=== PATIENT | female | born 1965 | race Caucasian/White ===

== ENCOUNTER → 2016-12-14 | Outpatient (REF) | payer BC ==
[2016-12-14 11:47] LABS: MEAN CORPUSCULAR HEMOGLOBIN 28.3 pg (27.0-33.0); MEAN CORPUSCULAR HGB CONC 32.4 g/dl (32.0-36.5); MEAN CORPUSCULAR VOLUME 87.3 fl (80.0-96.0); RED CELL DISTRIBUTION WIDTH 13.6 % (11.5-14.5); WHITE BLOOD COUNT 6.4 K/mm3 (4.0-10.0)
[2016-12-14 12:55] LABS: ALBUMIN 3.7 GM/DL (3.2-5.2); ALBUMIN/GLOBULIN RATIO 1.03 (1.00-1.93); ALKALINE PHOSPHATASE 90 U/L (45-117); ALT/SGPT 23 U/L (12-78); ANION GAP 9 MEQ/L (8-16); AST/SGOT 17 U/L (15-37); BILIRUBIN,TOTAL 0.4 MG/DL (0.2-1.0); BLOOD UREA NITROGEN 17 MG/DL (7-18); CALCIUM LEVEL 9.8 MG/DL (8.5-10.1); CARBON DIOXIDE LEVEL 27 MEQ/L (21-32); CHLORIDE LEVEL 106 MEQ/L (98-107); CHOLESTEROL LEVEL 198 MG/DL (<200); CREATININE FOR GFR 0.89 MG/DL (0.55-1.02); GLOMERULAR FILTRATION RATE > 60.0 (>51); GLUCOSE, FASTING 69 MG/DL (70-105); POTASSIUM SERUM 4.5 MEQ/L (3.5-5.1); SODIUM LEVEL 142 MEQ/L (136-145); TOTAL PROTEIN 7.3 GM/DL (6.4-8.2); TRIGLYCERIDES LEVEL 57 MG/DL (<150)
== END ==
LOC: M SFHCPLAZ 09:38
PROVIDERS: ATTEND Internal Medicine
DX: Z00.00 Encounter for general adult medical examination without abnormal findings (principal); Z86.19 Personal history of other infectious and parasitic diseases; Z90.5 Acquired absence of kidney; R94.6 Abnormal results of thyroid function studies

== ENCOUNTER 2017-01-20 12:00 | Emergency (ER) | payer BC ==
[~2017-01-20] VITALS: Ht 165.1 cm; Wt 90.3 kg
[2017-01-20] MEDS ORDERED: LEVO50TA5 PO (12:11)
--- NOTE | 2017-01-20 12:54 | REP ---
Head CT without contrast: History: Headache. Comparison study: No comparison study. CT findings: Bone window settings demonstrate an intact bony calvarium. There is no evidence of skull fracture or incidental bony calvarial lesion. The visualized paranasal sinuses appear clear. No intraorbital abnormality is seen. On soft tissue window setting images; the lateral, third, and fourth ventricles are normal in size and position. Raza-white differentiation pattern is normal above and below the tentorium. There are is no evidence of intracranial hemorrhage. No mass, edema, infarction, or midline shift is seen. No extra-axial fluid collection is appreciated. Impression: Negative noncontrast head CT. Signed by Brijesh Oviedo MD 01/20/2017 12:44 P
[2017-01-20 13:18] VITALS: BP 132/78
== END 2017-01-20 13:23 | disposition home or self-care (01) ==
LOC: M ED 12:59
DX: H21.561 Pupillary abnormality, right eye (principal); H57.02 Anisocoria; E07.9 Disorder of thyroid, unspecified; Z90.5 Acquired absence of kidney; Z79.899 Other long term (current) drug therapy

== ENCOUNTER → 2017-06-03 | Outpatient (REF) | payer BC ==
[~2017-06-03] MED LIST: LEVO50TA5 PO
== END ==
LOC: M SFHCWAGY 08:17
PROVIDERS: ATTEND Nurse Practitioner Women's Health
DX: Z12.4 Encounter for screening for malignant neoplasm of cervix (principal)

== ENCOUNTER → 2017-06-03 | Outpatient (CLI) | payer BC ==
--- NOTE | 2017-06-03 08:55 | REPMRS ---
Patient History The patient states she had a clinical breast exam in 05/29 No known family history of cancer. Benign stereotatic breast biopsy of both breasts, October 16, 2007. Digital Woman Screen Mammo: June 03, 2017 - Exam #: [id number] Bilateral CC and MLO view(s) were taken. Technologist: Adamaris Ellington, Technologist Prior study comparison: June 03, 2016, digital woman screen mammo performed at [facility]. December 09, 2014, digital woman screen mammo performed at [facility]. October 19, 2013, digital woman screen mammo performed at [facility]. FINDINGS: There are scattered fibroglandular densities. There is a needle biopsy marker clip in the right breast. There has been no change in the appearance of the mammogram from the prior studies. There is a mild amount of scattered fibroglandular density which is fairly symmetric. There is no interval development of dominant mass, architectural distortion, or clustered microcalcification suggestive of malignancy. ASSESSMENT: BI-RADS/ACR category 2 mammogram. Benign finding(s). Recommendation Routine screening mammogram in 1 year (for women over age 40). This mammogram was interpreted with the aid of an FDA-approved computer-aided dectection system. Electronically Signed By: Brandon Oviedo MD 06/03/17 0830
== END ==
LOC: M WHC 08:01
PROVIDERS: ATTEND Nurse Practitioner Women's Health
DX: Z12.31 Encounter for screening mammogram for malignant neoplasm of breast (principal)

== ENCOUNTER → 2018-04-13 | Outpatient (CLI) | payer BC ==
[2018-04-13 19:51] LABS: HEMATOCRIT 36.8 % (36.0-47.0); HEMOGLOBIN 12.2 g/dl (12.0-15.5); MEAN CORPUSCULAR HEMOGLOBIN 28.5 pg (27.0-33.0); MEAN CORPUSCULAR HGB CONC 33.2 g/dl (32.0-36.5); PLATELET COUNT, AUTOMATED 404 10^3/uL (150-450); RED BLOOD COUNT 4.28 10^6/uL (4.00-5.40); WHITE BLOOD COUNT 6.6 10^3/uL (4.0-10.0)
[2018-04-13 20:49] LABS: ALBUMIN 3.7 GM/DL (3.2-5.2); ALBUMIN/GLOBULIN RATIO 1.06 (1.00-1.93); ALKALINE PHOSPHATASE 97 U/L (45-117); ALT/SGPT 36 U/L (12-78); ANION GAP 8 MEQ/L (8-16); AST/SGOT 25 U/L (7-37); BILIRUBIN,TOTAL 0.4 MG/DL (0.2-1.0); BLOOD UREA NITROGEN 30 MG/DL (7-18); CALCIUM LEVEL 9.3 MG/DL (8.5-10.1); CARBON DIOXIDE LEVEL 26 MEQ/L (21-32); CHLORIDE LEVEL 106 MEQ/L (98-107); CHOLESTEROL LEVEL 210 MG/DL (<200); CHOLESTEROL RISK RATIO 2.625 (<5); CREATININE FOR GFR 0.96 MG/DL (0.55-1.30); GLOMERULAR FILTRATION RATE > 60.0 (>51); GLUCOSE, FASTING 80 MG/DL (70-100); HDL CHOLESTEROL 80 MG/DL (>40); LDL CHOLESTEROL 117.4 MG/DL (<100); NON-HDL-C 130 MG/DL; SODIUM LEVEL 140 MEQ/L (136-145); TOTAL PROTEIN 7.2 GM/DL (6.4-8.2); TRIGLYCERIDES LEVEL 63 MG/DL (<150)
== END ==
LOC: M WUC 17:59
DX: Z86.19 Personal history of other infectious and parasitic diseases (principal); Z90.5 Acquired absence of kidney; E03.9 Hypothyroidism, unspecified
CPT/HCPCS: 84443

== ENCOUNTER → 2019-07-04 | Outpatient (REF) | payer BC ==
[2019-07-04 10:57] LABS: HEMATOCRIT 41.6 % (36.0-47.0); HEMOGLOBIN 13.4 g/dl (12.0-15.5); MEAN CORPUSCULAR HEMOGLOBIN 28.9 pg (27.0-33.0); MEAN CORPUSCULAR HGB CONC 32.2 g/dl (32.0-36.5); MEAN CORPUSCULAR VOLUME 89.7 fl (80.0-96.0); PLATELET COUNT, AUTOMATED 427 10^3/uL (150-450); RED BLOOD COUNT 4.64 10^6/uL (4.00-5.40); WHITE BLOOD COUNT 6.2 10^3/uL (4.0-10.0)
[2019-07-04 11:33] LABS: ALBUMIN 3.9 GM/DL (3.2-5.2); BILIRUBIN,TOTAL 0.6 MG/DL (0.2-1.0); CREATININE FOR GFR 1.11 MG/DL (0.55-1.30); GLOMERULAR FILTRATION RATE 54.1 (>51); POTASSIUM SERUM 4.4 MEQ/L (3.5-5.1); THYROID STIMULATING HORMONE 3.14 uIU/ML (0.358-3.740); TOTAL PROTEIN 7.9 GM/DL (6.4-8.2)
== END ==
LOC: M SFHCPLAZ 09:39
PROVIDERS: ATTEND Nurse Practitioner Adult Health
DX: R19.7 Diarrhea, unspecified (principal); E03.9 Hypothyroidism, unspecified

== ENCOUNTER → 2019-07-05 | Outpatient (REF) | payer BC | LOC: M SFHCPLAZ 11:14 | PROVIDERS: ATTEND Nurse Practitioner Adult Health | DX: R19.7 Diarrhea, unspecified (principal) ==

== ENCOUNTER → 2019-10-04 | Outpatient (CLI) | payer BC ==
--- NOTE | 2019-10-04 09:48 | REP ---
BILATERAL SCREENING DIGITAL MAMMOGRAM WITH 3D TOMOSYNTHESIS: There are no palpable abnormalities or other breast complaints. The the patient states she had a clinical breast examination the September,. The the patient states she performs self-breast examinations 12 times per year. The Tyrer-Cuzick Score is: 10.2% . Comparison is the 10/19/2013. There are scattered areas of fibroglandular density. There is no dominant mass, micro calcific cluster or architectural distortion that would indicate malignancy. There is a biopsy marking clip in each breast. The the patient had bilateral stereotactic breast biopsies in 2007. The biopsies were benign. There are no additional findings on 3D tomosynthesiss. There is no change from the prior study. Impression: BIRADS/ACR category 1 mammogram. Negative. Recommendation: Routine annual screening mammography. This mammogram was interpreted with the aid of a FDA approved computer-aided detection system. A. Negative mammogram reports should not delay biopsy if a dominant or clinically suspicious mass is present. B. Not all breast cancers are identified by mammography or tomosynthesis. C. Adenosis and dense breasts may obscure an underlying neoplasm. Patient letter M1. Electronically Signed by Rosendo Edwards MD 10/04/2019 09:40 A
== END ==
LOC: M WHC 08:04
PROVIDERS: ATTEND Nurse Practitioner Women's Health
DX: Z12.31 Encounter for screening mammogram for malignant neoplasm of breast (principal)

== ENCOUNTER → 2019-10-04 | Outpatient (REF) | payer BC | LOC: M SFHCWAGY 10:51 | PROVIDERS: ATTEND Nurse Practitioner Women's Health | DX: Z12.4 Encounter for screening for malignant neoplasm of cervix (principal) ==

== ENCOUNTER → 2020-08-18 | Outpatient (CLI) | payer BC ==
[2020-08-18 15:59] LABS: FREE T4 1.26 NG/DL (0.76-1.46)
[2020-08-18 16:00] LABS: PTH INTACT 32.8 PG/ML (18.5-88.0)
[2020-08-18 17:11] LABS: BLOOD UREA NITROGEN 15 MG/DL (7-18); CREATININE FOR GFR 0.96 MG/DL (0.55-1.30); GLOMERULAR FILTRATION RATE > 60.0 (>51)
== END ==
LOC: M LAB 14:32
PROVIDERS: ATTEND Otolaryngology
DX: T78.3XXA Angioneurotic edema, initial encounter (principal)

== ENCOUNTER → 2020-08-18 | Outpatient (CLI) | payer BC | LOC: M LAB 16:14 | PROVIDERS: ATTEND Otolaryngology | DX: T78.3XXA Angioneurotic edema, initial encounter (principal) ==

== ENCOUNTER → 2020-08-22 | Outpatient (CLI) | payer BC ==
[~2020-08-22] MED LIST changes: +PROHANCE 279.3MG/ML 15ML VIAL As Ordered ONE; +PROHANCE 279.3MG/ML 5ML VIAL As Ordered ONE; +diphenhydrAMINE 25MG CAP PO ONE
--- NOTE | 2020-08-22 14:15 | REPVR ---
PROCEDURE INFORMATION: Exam: MR Neck Without and With Contrast Exam date and time: 08/22/2020 12:41 PM Age: 55 years old Clinical indication: Mass, lump, or swelling; Patient HX: PT states swelling of the tongue; Additional info: Angioneurotic edema TECHNIQUE: Imaging protocol: MR images of the neck without and with intravenous contrast. Contrast material: PROHANCE; Contrast volume: 20 ml; Contrast route: INTRAVENOUS (IV); COMPARISON: No relevant prior studies available. FINDINGS: Oral Cavity: The tongue does not appear enlarged. The meena pharyngeal airway remains patent. Nasopharynx: Unremarkable. Oropharynx: Unremarkable. Hypopharynx: Unremarkable. Larynx: Unremarkable. Submandibular/Parotid glands: Unremarkable. Retropharyngeal space: Unremarkable. Vasculature: Unremarkable. Lymph nodes: There are small, scattered cervical lymph nodes. Need to focal No worrisome lymphadenopathy. Soft tissues: Bones/joints: Unremarkable. IMPRESSION: No acute soft tissue abnormality. Electronically signed by: Susana Winters On 08/22/2020 14:15:13 PM
== END ==
LOC: M RAD 11:23
PROVIDERS: ATTEND Otolaryngology
DX: T78.3XXA Angioneurotic edema, initial encounter (principal)
CPT/HCPCS: 70543; A9576

== ENCOUNTER → 2020-09-02 | Outpatient (CLI) | payer BC ==
[~2020-09-02] MED LIST changes: -PROHANCE 279.3MG/ML 15ML VIAL As Ordered ONE; -PROHANCE 279.3MG/ML 5ML VIAL As Ordered ONE; -diphenhydrAMINE 25MG CAP PO ONE
[2020-09-02 12:11] LABS: BASO % 0.2 % (0.0-1.0); EOS # 0.1 10^3/uL (0.0-0.5); HEMATOCRIT 41.2 % (36.0-47.0); HEMOGLOBIN 12.8 g/dl (12.0-15.5); LYMPH # 1.5 10^3/uL (1.5-5.0); LYMPH % 30.6 % (24.0-44.0); MEAN CORPUSCULAR HEMOGLOBIN 27.1 pg (27.0-33.0); MEAN CORPUSCULAR HGB CONC 31.1 g/dl (32.0-36.5); MEAN CORPUSCULAR VOLUME 87.3 fl (80.0-96.0); MONO # 0.4 10^3/uL (0.0-0.8); MONO % 7.1 % (0.0-5.0); NEUTROPHILS % 59.5 % (36.0-66.0); PLATELET COUNT, AUTOMATED 409 10^3/uL (150-450); RED BLOOD COUNT 4.72 10^6/uL (4.00-5.40)
[2020-09-02 12:43] LABS: ERYTHROCYTE SEDIMENTATION RATE 25 mm/hr (0-30)
[2020-09-02 12:51] LABS: ALBUMIN 3.6 GM/DL (3.2-5.2); ALT/SGPT 30 U/L (12-78); BILIRUBIN,TOTAL 0.3 MG/DL (0.2-1.0); BLOOD UREA NITROGEN 9 MG/DL (7-18); CALCIUM LEVEL 9.5 MG/DL (8.5-10.1); CARBON DIOXIDE LEVEL 29 MEQ/L (21-32); CHLORIDE LEVEL 106 MEQ/L (98-107); CREATININE FOR GFR 0.97 MG/DL (0.55-1.30); FERRITIN 97 NG/ML (8-252); FOLATE 16.9 NG/ML; GLOMERULAR FILTRATION RATE > 60.0 (>51); GLUCOSE, FASTING 88 MG/DL (70-100); POTASSIUM SERUM 4.9 MEQ/L (3.5-5.1); RHEUMATOID FACTOR QUANT < 10.0 IU/ML (<15.0); SODIUM LEVEL 140 MEQ/L (136-145); THYROGLOBULIN ANTIBODY 91.9 U/ML (<60.0); TOTAL PROTEIN 7.1 GM/DL (6.4-8.2); VITAMIN B12 LEVEL 660 PG/ML
[2020-09-06 16:07] LABS: ANTINUCLEAR ANTIBODIES DIRECT Negative (Negative); SJOGREN'S ANTI SS-A <0.2 AI (0.0-0.9); SJOGREN'S ANTI SS-B <0.2 AI (0.0-0.9); VITAMIN B1 LEVEL WHOLE BLOOD 75.6 nmol/L (66.5-200.0); VITAMIN B6,PYRIDOXAL PHOSPHATE 38.4 ug/L (2.0-32.8)
== END ==
LOC: M WUC 09:35
PROVIDERS: ATTEND Allergy & Immunology Allergy
DX: K14.0 Glossitis (principal)

== ENCOUNTER → 2020-10-06 | Outpatient (CLI) | payer BC ==
--- NOTE | 2020-10-06 09:49 | REPMRS ---
Patient History The patient states she had a clinical breast exam in October 2019. No known family history of cancer. Benign stereotatic breast biopsy of both breasts, October 16, 2007. No Hormone Replacement Therapy Digital Woman Screen Mammo: October 06, 2020 - Exam #: [id number] Bilateral CC and MLO view(s) were taken. Technologist: RT Sarah Prior study comparison: October 04, 2019, bilateral digital woman screen mammo performed at [facility]. June 03, 2017, digital woman screen mammo performed at [facility]. June 03, 2016, digital woman screen mammo performed at [facility]. FINDINGS: The breast tissue is almost entirely fat. The Volpara volumetric breast density category is: A. There is a needle biopsy marker clip in the right breast. There has been no change in the appearance of the mammogram from the prior studies. There is no interval development of dominant mass, architectural distortion, or grouped microcalcification typical of malignancy. 3-D tomosynthesis shows no additional findings. Assessment: BI-RADS/ACR category 2 mammogram. Benign Findings. Recommendation Routine screening mammogram of both breasts in 1 year (for women over age 40). This patient's [facility] Lifetime Breast Cancer RIsk is estimated at 9.9 %. This mammogram was interpreted with the aid of an FDA-approved computer-aided dectection system. Electronically Signed By: Brandon Oviedo MD 10/06/20 0921
== END ==
LOC: M WHC 08:00
PROVIDERS: ATTEND Nurse Practitioner Women's Health
DX: Z12.31 Encounter for screening mammogram for malignant neoplasm of breast (principal); Z86.018 Personal history of other benign neoplasm

== ENCOUNTER → 2020-10-21 | Outpatient (CLI) | payer BC | LOC: M WUC 08:09 | PROVIDERS: ATTEND Otolaryngology | DX: E03.1 Congenital hypothyroidism without goiter (principal) ==

== ENCOUNTER → 2021-05-28 | Outpatient (REF) | payer BC | LOC: M LAB REF 11:28 | PROVIDERS: ATTEND Internal Medicine | DX: R19.7 Diarrhea, unspecified (principal) ==

== ENCOUNTER → 2021-07-14 | Outpatient (POV) | payer BC ==
[~2021-07-14] VITALS: Ht 162.6 cm; Wt 100.0 kg
[2021-07-14 11:30] VITALS: BP 132/86
--- NOTE | 2021-07-16 10:05 | IRCOV ---
[facility] IR Consult Office Visit IR Consult Office Visit DATE: Jul 14, 2021 REASON FOR CONSULTATION/CHIEF COMPLAINT: Venogram. HISTORY OF PRESENT ILLNESS: 56-year-old female with history of crush injury to the left medial thigh in May 2021. She has a large wound on the left medial thigh with pressure necrosis and is undergoing care with wound care. She reports significant swelling of the left thigh and she is referred by wound care for venogram, to assess for any underlying saphenous vein reflux and/or deep vein thrombosis, as contributing factors to the edema. Due to the location and extent of her wound, she is not a good candidate for ultrasound evaluation. She denies any underlying fractures. She denies any prior DVT. She used to spend all day on her feet and does report prior history of bulging varicose veins. No prior venous intervention reported. Patient denies any intermittent claudication, rest pain with leg elevation, prior leg thrombosis, wounds or amputations. Patient denies chest pain, shortness of breath, orthopnea or paroxysmal nocturnal dyspnea. ALLERGIES: Please see below. HOME MEDICATIONS: Please see below. PAST MEDICAL HISTORY: Hypothyroidism Acquired absence of kidney Lyme disease PAST SURGICAL HISTORY: Tubal ligation Tonsillectomy Carpal tunnel release Donated kidney FAMILY HISTORY: Noncontributory. SOCIAL HISTORY: Non-smoker. Denies alcohol or drugs. REVIEW OF SYSTEMS: Otherwise negative. PHYSICAL EXAMINATION: VITAL SIGNS: Please see below. GENERAL APPEARANCE: Appears well. Comfortable at rest. HEENT: No scleral icterus. RESPIRATORY: Normal breathing at rest. CARDIOVASCULAR: Normal rate. ABDOMEN: Soft nontender. EXTREMITIES: Left lower extremity: Extensive wound on the left medial thigh with overlying dressing. Erythema, pitting of the skin and extensive edema of the le ft thigh. Left thigh is tense and warm to touch. Below the knee, calf is soft nontender. Skin is pink and normal in temperature. No bulging varicosities on the calf. AT/PT 1+. popliteal 1+. Motor 5 out of 5 below knee. Sensation intact. Right lower extremity: Normal in color and temperature. AT/PT 1+ popliteal 1+. Motor 5 out of 5. Sensation intact. No edema. NEUROLOGICAL: Alert and oriented. PSYCHIATRIC: Appropriate to circumstance. LABORATORY DATA: None recent. Imaging: None pertinent. ASSESSMENT/PLAN: 56-year-old female gives prior history of prolonged standing and bulging varicose veins, presents for nonhealing left medial thigh ulcer. This is associate with underlying edema. As she is not a good candidate for ultrasound of the veins, she is referred for a venogram. We discussed the risks and benefits of the procedure. This will evaluate the deep system from the popliteal up to the IVC and also for any reflux in the saphenous venous system. She would like to proceed and we have scheduled the patient for left lower extremity venogram. I spent 30 minutes reviewing patient's records, imaging and in consultation with the patient. Thank you for this referral. CC Dr. Orourke Allergies Coded Allergies: MS - No Known Drug Allergy (Verified Allergy, Unknown, 01/20/17) Home Medications Scheduled Levothyroxine Sodium (Levothyroxine Sodium), 50 MCG PO DAILY, (Reported) VS, I&O, 24H, Fishbone Vital Signs/I&O Vital Signs Date Time Temp Pulse Resp B/P (MAP) Pulse Ox O2 Delivery O2 Flow Rate FiO2 07/14/21 11:30 96.7 111 20 132/86 (101) 100 Room Air CALEB HALE MD Jul 16, 2021 10:05
== END ==
LOC: M IRPOV 11:20
PROVIDERS: ATTEND Radiology Diagnostic Radiology
DX: S77.12XA Crushing injury of left thigh, initial encounter (principal); L89.896 Pressure-induced deep tissue damage of other site; E03.9 Hypothyroidism, unspecified; X58.XXXA Exposure to other specified factors, initial encounter; Y92.9 Unspecified place or not applicable; Y93.9 Activity, unspecified; Y99.9 Unspecified external cause status

== ENCOUNTER → 2021-07-27 | Outpatient (CLI) | payer BC ==
[~2021-07-27] MED LIST changes: +ASPI-255 PO; +ISOVUE-300 61% 50ML VIAL As Ordered ONE; +LIDOCAINE 1% MDV 20ML VIAL As Ordered ONE; +MIDAZOLAM INJ 2MG/2ML VIAL (J2250 PER 1MG) As Ordered ONE; +NS 1,000 ML IV SCH; +diphenhydrAMINE 50MG/ML VIAL (J1200) As Ordered ONE; +fentaNYL 100 MCG/2 ML INJECTION (J3010) As Ordered ONE
--- NOTE | 2021-07-27 13:23 | IRHP ---
[facility] IR Pre-Procedure H & P General Date of Service: Jul 27, 2021 Procedure: Same Day Surgery Interval History and Physical I have seen the patient and reviewed last H & P performed within 30 days. There is no significant interval change. History of Present Illness Chief Complaint The patient is a 56-year-old female admitted with a reason for visit of Dvt W/ Reflux. PRE-PROCEDURE DIAGNOSIS: Venous hypertension HEART: Normal rate. LUNGS: Normal breathing at rest. ASA Classification ASA Classification: III-Severe systemic dis. Mallampati Score: II NPO: Yes Problems with prior sedation: No Obstructive Sleep Apnea: No Plan moderate sedation Allergies Coded Allergies: MS - No Known Drug Allergy (Verified Allergy, Unknown, 01/20/17) Home Medications Scheduled Aspirin (Aspirin EC), 325 MG PO DAILY, (Reported) Levothyroxine Sodium (Levothyroxine Sodium), 50 MCG PO DAILY, (Reported) VS, I&O, 24H, Fishbone Vital Signs/I&O Vital Signs Date Time Temp Pulse Resp B/P (MAP) Pulse Ox O2 Delivery O2 Flow Rate FiO2 07/27/21 12:20 97.7 84 20 100 Room Air CALEB HALE MD Jul 27, 2021 13:23
[2021-07-27 15:47] VITALS: BP 119/66
--- NOTE | 2021-07-29 13:59 | IRPON ---
IR Postoperative Note Date Of Procedure: Jul 27, 2021 Time Of Procedure: 16:00 IR Postoperative Note IR Left lower extremity venogram. IR Moderate sedation. Clinical Information:Crushing trauma to medial left thigh with edema and nonhealing wound. Referred for venogram to evaluate patency of the deep venous system and for any saphenous vein reflux. Location of ulcer limits ultrasonic evaluation. Physician: Dr. Mclaughlin. Procedure: The patient was advised of the benefits, risks, and alternatives of the procedure and informed consent was obtained. A time out was performed with verification of the patient's name, MRN, site of procedure, and type of procedure to be performed. The patient was positioned in the supine position on the angiographic table. The site was prepped and draped in the usual sterile fashion. Moderate sedation was performed by the physician including the presence of an independent trained RN, who assisted in monitoring the patient's level of consciousness and physiological status. Following the administration of fentanyl and Versed, the physician spent 60 minutes of continuous [id number] time with the patient. Ultrasound of the left popliteal fossa, demonstrates patent and compressible left popliteal vein. Lidocaine was used for local anesthesia. The left popliteal vein was accessed, under ultrasound guidance with a microintroducer set. A short 0.018" Henderson wire was inserted under fluoroscopy guidance and the needle was exchanged for a 4 Fr microintroducer sheath. A left leg venogram was performed. This demonstrates patent flow from the left popliteal vein, up the femoral vein. No filling defects. No reflux into collateral pricing manager veins. Further venography over the pelvis was performed, and this demonstrates patent femoral vein, common femoral vein, external iliac and common iliac vein, draining back to the IVC. No central occlusion. No filling defect or occlusion. No reflux into the greater saphenous system. No collaterals in the thigh. Repeat venogram was performed over the left thigh with additional Valsalva maneuvers. This demonstrates no reflux into the saphenous venous system. The micro sheath was removed, pressure held and hemostasis achieved. A sterile dressing was applied to the site. The patient tolerated the procedure well and was returned to the PRU in stable condition. EBL: < 5 mL. Complications:None. Impression: 1. Left leg venogram demonstrates patent popliteal vein and femoral vein draining back to the iliac vein and into the IVC with no occlusive thrombus. 2. No reflux into the greater saphenous system. Thank you for this referral. CC CALEB Paula MD Jul 29, 2021 13:59
== END ==
LOC: M IRPRO 12:07
PROVIDERS: ATTEND Radiology Diagnostic Radiology
DX: I87.392 Chronic venous hypertension (idiopathic) with other complications of left lower extremity (principal); S77.12XA Crushing injury of left thigh, initial encounter; Z79.890 Hormone replacement therapy; Z79.899 Other long term (current) drug therapy; X58.XXXA Exposure to other specified factors, initial encounter
CPT/HCPCS: 36005; 75820; 99152; 99153; C1769; C1894; J1644; J2250; J3010; Q9967

== ENCOUNTER → 2021-08-15 | Outpatient (CLI) | payer BC ==
[~2021-08-15] MED LIST changes: -ISOVUE-300 61% 50ML VIAL As Ordered ONE; -LIDOCAINE 1% MDV 20ML VIAL As Ordered ONE; -MIDAZOLAM INJ 2MG/2ML VIAL (J2250 PER 1MG) As Ordered ONE; -NS 1,000 ML IV SCH; -diphenhydrAMINE 50MG/ML VIAL (J1200) As Ordered ONE; -fentaNYL 100 MCG/2 ML INJECTION (J3010) As Ordered ONE
== END ==
LOC: M LABSMTC 11:45
PROVIDERS: ATTEND Anesthesiology
DX: Z01.812 Encounter for preprocedural laboratory examination (principal); Z11.52 Encounter for screening for COVID-19

== ENCOUNTER → 2021-08-31 | Outpatient (CLI) | payer BC ==
[2021-08-31 12:06] LABS: HEMATOCRIT 36.5 % (36.0-47.0); HEMOGLOBIN 11.5 g/dl (12.0-15.5); MEAN CORPUSCULAR HEMOGLOBIN 27.7 pg (27.0-33.0); MEAN CORPUSCULAR HGB CONC 31.5 g/dl (32.0-36.5); PLATELET COUNT, AUTOMATED 621 10^3/uL (150-450); RED BLOOD COUNT 4.15 10^6/uL (4.00-5.40); WHITE BLOOD COUNT 5.3 10^3/uL (4.0-10.0)
[2021-08-31 12:59] LABS: ALT/SGPT 32 U/L (12-78); BILIRUBIN,TOTAL 0.4 MG/DL (0.2-1.0); BLOOD UREA NITROGEN 8 MG/DL (7-18); CALCIUM LEVEL 9.7 MG/DL (8.5-10.1); CARBON DIOXIDE LEVEL 25 MEQ/L (21-32); CHLORIDE LEVEL 107 MEQ/L (98-107); CHOLESTEROL LEVEL 153 MG/DL (<200); CREATININE FOR GFR 0.95 MG/DL (0.55-1.30); GLOMERULAR FILTRATION RATE > 60.0 (>51); GLUCOSE, FASTING 92 MG/DL (70-100); HDL CHOLESTEROL 34 MG/DL (>40); LDL CHOLESTEROL 97 MG/DL (<100); NON-HDL-C 119 MG/DL; POTASSIUM SERUM 4.1 MEQ/L (3.5-5.1); SODIUM LEVEL 140 MEQ/L (136-145); TOTAL PROTEIN 7.1 GM/DL (6.4-8.2); TRIGLYCERIDES LEVEL 109 MG/DL (<150)
== END ==
LOC: M WUC 09:20
PROVIDERS: ATTEND Internal Medicine
DX: Z00.00 Encounter for general adult medical examination without abnormal findings (principal); E78.00 Pure hypercholesterolemia, unspecified; E03.9 Hypothyroidism, unspecified; Z90.5 Acquired absence of kidney

== ENCOUNTER → 2021-09-10 | Outpatient (CLI) | payer BC | LOC: M LABSMTC 11:11 | PROVIDERS: ATTEND Anesthesiology | DX: Z01.818 Encounter for other preprocedural examination (principal); Z11.52 Encounter for screening for COVID-19 ==

== ENCOUNTER → 2022-02-12 | Outpatient (CLI) | payer OTHER ==
[2022-02-12 14:06] LABS: ALBUMIN 3.5 GM/DL (3.2-5.2); BILIRUBIN,TOTAL 0.3 MG/DL (0.2-1.0); CHOLESTEROL RISK RATIO 3.481 (<5); CREATININE FOR GFR 1.25 MG/DL (0.55-1.30); GLOMERULAR FILTRATION RATE 46.9 (>51); POTASSIUM SERUM 4.9 MEQ/L (3.5-5.1); THYROID STIMULATING HORMONE 6.35 uIU/ML (0.358-3.740); TOTAL PROTEIN 7.2 GM/DL (6.4-8.2)
[2022-02-12 14:20] LABS: HEPATITIS C VIRUS ABY INDEX 0.1 INDEX (<0.8)
== END ==
LOC: M WUC 08:21
PROVIDERS: ATTEND Internal Medicine
DX: E03.9 Hypothyroidism, unspecified (principal); Z90.5 Acquired absence of kidney; E78.00 Pure hypercholesterolemia, unspecified; Z11.59 Encounter for screening for other viral diseases

== ENCOUNTER → 2022-12-15 | Outpatient (CLI) | payer OTHER ==
[2022-12-15 19:21] LABS: PLATELET COUNT, AUTOMATED 450 10^3/uL (150-450)
[2022-12-15 19:29] LABS: COLLAGEN EPINEPHRINE 142 SECONDS (74-162)
[2022-12-15 19:45] LABS: INR 0.88; PROTHROMBIN TIME 12.1 SECONDS (12.5-14.5)
[2022-12-15 19:46] LABS: PARTIAL THROMBOPLASTIN TIME 28.3 SECONDS (24.8-34.2)
== END ==
LOC: M LAB 18:53
PROVIDERS: ATTEND Physician Assistant Surgical
DX: Z01.818 Encounter for other preprocedural examination (principal)

== ENCOUNTER → 2023-04-22 | Outpatient (REF) | payer OTHER ==
[2023-04-22 17:11] LABS: FREE T4 1.51 NG/DL (0.89-1.76); THYROID STIMULATING HORMONE 2.723 uIU/ML (0.55-4.78)
== END ==
LOC: M LABWUC 16:18
PROVIDERS: ATTEND Family Medicine
DX: E03.8 Other specified hypothyroidism (principal)

== ENCOUNTER → 2023-05-12 | Outpatient (CLI) | payer OTHER | LOC: M RAD 16:19 | PROVIDERS: ATTEND Surgery Vascular Surgery | DX: R22.40 Localized swelling, mass and lump, unspecified lower limb (principal) ==

== ENCOUNTER → 2023-06-22 | Outpatient (CLI) | payer OTHER ==
[2023-06-22 18:00] LABS: PLATELET COUNT, AUTOMATED 456 10^3/uL (150-450)
[2023-06-22 18:08] LABS: COLLAGEN EPINEPHRINE 124 SECONDS (74-162)
[2023-06-22 18:14] LABS: INR 1.08; PARTIAL THROMBOPLASTIN TIME 30.1 SECONDS (24.8-34.2); PROTHROMBIN TIME 13.7 SECONDS (12.5-14.5)
== END ==
LOC: M LAB 17:24
PROVIDERS: ATTEND Physician Assistant Surgical
DX: Z01.818 Encounter for other preprocedural examination (principal)